=== PATIENT | male | born 1965 | race Caucasian/White ===

== ENCOUNTER → 2022-06-05 | Outpatient (CLI) | payer MEDICAID, SELFPAY | END | disposition home or self-care (01) | LOC: PSN 08:21 | PROVIDERS: PCP Student in an Organized Health Care Education/Training Program; Referring Provider Internal Medicine Cardiovascular Disease; Visit Provider Internal Medicine Cardiovascular Disease | DX: I48.0 Paroxysmal atrial fibrillation (principal); I10 Essential (primary) hypertension | CPT/HCPCS: 93225; 93226 ==

== ENCOUNTER → 2022-11-05 | Outpatient (CLI) | payer MEDICAID, SELFPAY ==
--- NOTE | 2022-11-05 13:43 | ECHOCS_ITS ---
Reason For Study: AFIB Procedure This was a 2D Doppler, Color Flow transthoracic echocardiogram. The study was technically difficult. Limited views were obtained. Exam performed in department. Left Ventricle Normal LV size. Left ventricular systolic function is normal. The estimated ejection fraction is 60 %. Stage 1 diastolic dysfunction. No regional wall motion abnormalities noted. Right Ventricle Normal RV size. Normal systolic function. Atria Normal left atrium. Normal right atrium. Mitral Valve Mitral valve not well visualized. Tricuspid Valve The tricuspid valve is not well visualized. Aortic Valve The aortic valve is not well visualized. Pulmonic Valve The pulmonic valve is not well visualized. Great Vessels Normal aortic root. The pulmonary artery is normal size. Normal inferior vena cava. Pericardium/Pleural No pericardial effusion. Medication 22 gauge I.V. with prn adaptor inserted into right arm. Diluted definity 2ml given slow IV push to enhance endocardial definition. MMode/2D Measurements & Calculations Ao root diam: 4.1 cm LAV(MOD-sp4): 57.2 ml LA A4 area: 21.1 cm2 LA dimension(2D): 3.6 cm RA A4 area: 19.2 cm2 Time Measurements MV dec time: 0.23 sec Doppler Measurements & Calculations MV E max geoff: 43.2 cm/sec Lat Peak E' Geoff: 11.1 cm/sec Med Peak E' Geoff: 6.6 cm/sec MV A max geoff: 56.3 cm/sec E/E' lat: 3.9 E/E' med: 6.5 MV E/A: 0.77 MV V2 max: 52.9 cm/sec Ao V2 max: 92.7 cm/sec MV max P.1 mmHg MV dec slope: 191.9 cm/sec2 Ao max P.4 mmHg MV V2 mean: 32.1 cm/sec Ao V2 mean: 68.1 cm/sec MV mean P.47 mmHg Ao mean P.1 mmHg MV V2 VTI: 14.6 cm Ao V2 VTI: 19.2 cm AV (velocity ratio): 0.89 LV V1 max: 85.0 cm/sec LV V1 max P.9 mmHg LV V1 mean P.7 mmHg LV V1 mean: 60.9 cm/sec LV V1 VTI: 17.2 cm ECHO/Echo Complete W/ Contrast Interpretation Summary Normal LV size. Left ventricular systolic function is normal. The estimated ejection fraction is 60 %. Stage 1 diastolic dysfunction. Contrast injection was performed. The study was technically difficult. Ordering Physician: Lea Max Referring Physician: Lea Max Performed By: [facility]
== END | disposition home or self-care (01) ==
LOC: CVS 13:42
PROVIDERS: PCP Student in an Organized Health Care Education/Training Program; Referring Provider Physician Assistant Medical; Visit Provider Physician Assistant Medical
DX: I48.0 Paroxysmal atrial fibrillation (principal)
CPT/HCPCS: 93306; Q9957; A4216; C8929

== ENCOUNTER → 2025-10-22 | Outpatient (CLI) | payer OTHER, SELFPAY ==
[2025-10-22 10:24] LABS: Anion Gap 13 (5-15); BUN 14 mg/dL (4-19); BUN/Creat Ratio 18.5 RATIO (10-20); Calcium,Total 9.2 mg/dL (7.6-11.0); Carbon Dioxide 22.6 mmol/L (21.0-32.0); Chloride 107 mmol/L (98-108); Glucose 209 mg/dL (70-99); Hepatitis C Antibody Nonreactive (Nonreactive); Potassium 3.7 mmol/L (3.3-5.1)
[2025-10-23 12:08] LABS: HCV Quant. RNA PCR HCV Not Detected IU/mL (.)
== END | disposition home or self-care (01) ==
PROVIDERS: PCP Student in an Organized Health Care Education/Training Program; Referring Provider Student in an Organized Health Care Education/Training Program; Visit Provider Student in an Organized Health Care Education/Training Program
DX: Z00.00 Encounter for general adult medical examination without abnormal findings (principal); E11.69 Type 2 diabetes mellitus with other specified complication; Z11.59 Encounter for screening for other viral diseases
CPT/HCPCS: 36415; 80048; 86803; 87522